=== PATIENT | female | born 1960 | race Caucasian/White ===

== ENCOUNTER 2024-02-02 07:59 | Outpatient (CLI) | payer OTHER | END 2024-02-02 18:16 | disposition home or self-care (01) | LOC: SCT 07:59 | PROVIDERS: ATTEND Physician Assistant | DX: R10.9 Unspecified abdominal pain (principal); N39.0 Urinary tract infection, site not specified; Z98.82 Breast implant status; Z90.49 Acquired absence of other specified parts of digestive tract; Z90.5 Acquired absence of kidney ==